=== PATIENT | female | born 1950 | race Caucasian/White ===

== ENCOUNTER 2018-05-30 09:02 | Emergency (ER) | payer MEDICARE, MEDICAID ==
[~2018-05-30 09:02] MED LIST: ASPI-1264 PO; BUS15T PO; CEPH500C5 PO; CLIN300C85 PO; CLON0.1T PO; GABA-338 PO; HYDR50CA PO; LEVA15HF4 IH; PANT40TA39 PO; QUET-1 PO; QUET400T3 PO; SERT100T PO
[2018-05-30 09:10] VITALS: BP 98/65
== END 2018-05-30 10:13 | disposition home or self-care (01) ==
LOC: ER 09:04
DX: M70.21 Olecranon bursitis, right elbow (principal); G43.909 Migraine, unspecified, not intractable, without status migrainosus; G62.9 Polyneuropathy, unspecified; J43.9 Emphysema, unspecified; J45.909 Unspecified asthma, uncomplicated; Z90.49 Acquired absence of other specified parts of digestive tract; Z90.89 Acquired absence of other organs; Z98.890 Other specified postprocedural states; Z60.2 Problems related to living alone; Z91.040 Latex allergy status; Z88.5 Allergy status to narcotic agent; Z79.899 Other long term (current) drug therapy; Z88.8 Allergy status to other drugs, medicaments and biological substances; Z79.82 Long term (current) use of aspirin; Z79.2 Long term (current) use of antibiotics; Y93.89 Activity, other specified
CPT/HCPCS: 99282; A6449